=== PATIENT | male | born 1965 | race Caucasian/White ===

== ENCOUNTER → 2020-02-25 | Outpatient (CLI) | payer OTHER ==
[~2020-02-25] MED LIST: ALL DAY ALLERGY10 M2 PO; AMLODIPINE BESYL5 MG PO; BETAPACE80 MG PO; ELIQUIS5 MG PO; FLOMAX0.4 MG PO; LIPITOR20 MG PO; METOPROLOL SUCC25 MG PO; PROTONIX 40 MG40 M1 PO; SINGULAIR10 MG PO; VENTOLIN HFA 66.7 GM INH
== END ==
LOC: SLEEP-COR 11:00
DX: R06.81 Apnea, not elsewhere classified (principal); I48.91 Unspecified atrial fibrillation
CPT/HCPCS: 95810

== ENCOUNTER → 2020-03-20 | Outpatient (CLI) | payer OTHER | LOC: HEART 5 10:16 | DX: I48.91 Unspecified atrial fibrillation (principal) ==

== ENCOUNTER → 2020-04-05 | Outpatient (CLI) | payer OTHER ==
[2020-04-05 07:27] LABS: HEMOGLOBIN 14.7 gm/dl (14.0-17.5); RED BLOOD COUNT 4.62 M/UL (4.20-5.50); WHITE BLOOD COUNT 8.8 K/UL (4.5-11.0)
[2020-04-05 07:48] LABS: BUN/CREATININE RATIO 20 (0-10)
== END ==
LOC: CATH 06:49
PROVIDERS: Internal Medicine Cardiovascular Disease
DX: I48.19 Other persistent atrial fibrillation (principal); I10 Essential (primary) hypertension; E78.5 Hyperlipidemia, unspecified; E66.01 Morbid (severe) obesity due to excess calories; J45.909 Unspecified asthma, uncomplicated; F41.9 Anxiety disorder, unspecified; G47.33 Obstructive sleep apnea (adult) (pediatric); N40.1 Benign prostatic hyperplasia with lower urinary tract symptoms; R39.11 Hesitancy of micturition; F17.290 Nicotine dependence, other tobacco product, uncomplicated; Z68.43 Body mass index [BMI] 50.0-59.9, adult; Z82.49 Family history of ischemic heart disease and other diseases of the circulatory system; Z98.890 Other specified postprocedural states; Z79.01 Long term (current) use of anticoagulants; Z79.899 Other long term (current) drug therapy
CPT/HCPCS: 36415; 80048; 85027; 92960; 93005; J1200; J1742; J2250; J2310; J3010; J7040